=== PATIENT | male | born 1940 | race Caucasian/White ===

== ENCOUNTER → 2016-10-21 | Outpatient (CLI) | payer MEDICARE, OTHER ==
[~2016-10-21] MED LIST: CRESTOR5 MG PO
== END | disposition home or self-care (01) ==
LOC: CDC 11:42
DX: R00.1 Bradycardia, unspecified (principal); I44.0 Atrioventricular block, first degree; I45.10 Unspecified right bundle-branch block; I44.4 Left anterior fascicular block; R94.31 Abnormal electrocardiogram [ECG] [EKG]; K40.90 Unilateral inguinal hernia, without obstruction or gangrene, not specified as recurrent
CPT/HCPCS: 93000

== ENCOUNTER 2016-10-31 06:19 | Day surgery (SDC) | payer OTHER ==
[~2016-10-31] VITALS: Ht 177.8 cm; Wt 80.8 kg
[2016-10-31 07:16] VITALS: BP 133/76
[2016-10-31] MEDS ORDERED: NORCO 5/3251 TABLET PO (09:34)
[2016-10-31 10:25] VITALS: BP 144/88
[2016-10-31 11:26] VITALS: BP 139/76
== END 2016-10-31 12:10 | disposition home or self-care (01) ==
LOC: SDC 06:19
PROC: 0YU60JZ Supplement Left Inguinal Region with Synthetic Substitute, Open Approach (ICD-10-PCS; principal; 2016-10-31)
DX: K40.90 Unilateral inguinal hernia, without obstruction or gangrene, not specified as recurrent (principal); D17.6 Benign lipomatous neoplasm of spermatic cord; I45.2 Bifascicular block; E78.00 Pure hypercholesterolemia, unspecified; Z82.49 Family history of ischemic heart disease and other diseases of the circulatory system; Z83.3 Family history of diabetes mellitus; Z87.891 Personal history of nicotine dependence
CPT/HCPCS: 88304; C1781; J0690; J1100; J2250; J2405; J3010

== ENCOUNTER 2016-10-31 20:35 | Emergency (ER) | payer OTHER ==
[~2016-10-31] VITALS: Ht 177.8 cm; Wt 83.1 kg
[~2016-10-31 20:35] MED LIST changes: +NORCO 5/3251 TABLET PO
[2016-10-31 21:54] VITALS: BP 136/73
== END 2016-10-31 21:55 | disposition home or self-care (01) ==
LOC: EME 20:35
DX: L76.22 Postprocedural hemorrhage of skin and subcutaneous tissue following other procedure (principal); E78.5 Hyperlipidemia, unspecified; Z95.5 Presence of coronary angioplasty implant and graft; Z87.891 Personal history of nicotine dependence
CPT/HCPCS: 99281; 99284